=== PATIENT | female | born 1970 | race Caucasian/White ===

== ENCOUNTER 2018-06-28 04:59 | Emergency (ER) | payer SELFPAY ==
[2018-06-28 05:58] LABS: Absolute Lymphocytes (CBC) 0.9 K/uL (0.7-4.9); Absolute Monocytes 0.9 K/uL (0.1-1.3); Absolute Neutrophil 7.5 K/uL (1.8-8.0); Basophils % 0.5 % (0-1.3); Eosinophils % 1.6 % (0-4.4); Hematocrit 43.3 % (36.0-45.0); Lymphocytes % 9.2 % (15.3-44.8); MPV 8.9 fL (7.6-11.3); RBC Red Blood Cell Count 4.39 M/uL (3.86-4.86)
[2018-06-28 06:04] LABS: Protime INR 1.02
[2018-06-28] MEDS ORDERED: ONDANSETRON 4 MG/2 ML VIAL ONE ×2 (06:04→07:10)
[2018-06-28] MEDS ORDERED: NA CHLORIDE 0.9% 1,000 ML ONE ×2 (06:04→07:36)
[2018-06-28 06:18] LABS: ALT/SGPT 19 U/L (12-78); AST/SGOT 13 U/L (15-37); Albumin 3.6 g/dL (3.4-5.0); Alkaline Phosphatase 135 U/L (45-117); BUN Blood Urea Nitrogen 12 mg/dL (7-18); Bicarbonate 22 mmol/L (21-32); Bilirubin Direct 0.1 mg/dL (0-0.2); Bilirubin Total 0.3 mg/dL (0.2-1.0); Glucose Level 122 mg/dL (74-106); Lipase 86 U/L (73-393); Magnesium 2.4 mg/dL (1.8-2.4); NT PRO-BNP 142 pg/mL (<125); Protein, Total 7.3 g/dL (6.4-8.2); Sodium Level 143 mmol/L (136-145); Troponin (Emerg Dept Use Only) < 0.02 ng/mL (0.0-0.045)
--- NOTE | 2018-06-28 08:18 | ER ---
Nurse's Notes [facility] Name: Jayleen Starks Age: 47 yrs Sex: Female : 1970 Arrival Date: 06/28/2018 Time: 05:00 Bed 6 Private MD: Diagnosis: Vomiting;Abdominal tenderness;Cough Presentation: 06/28 05:15 Presenting complaint: states: that on pt stated to have a cough, and fc congestion. Went to [place] on Friday and told she had a virus. Went home and then started to vomit. Now unable to hold down her seizures medications. Transition of care: patient was not received from another setting of care. Onset of symptoms was June 25, 2018. Risk Assessment: Do you want to hurt yourself or someone else? Patient reports no desire to harm self or others. Initial Sepsis Screen: Does the patient meet any 2 criteria? HR > 90 bpm. Yes Does the patient have a suspected source of infection? No. Patient's initial sepsis screen is negative. Care prior to arrival: None. 05:15 Method Of Arrival: Ambulatory fc 05:15 Acuity: ANSHUL 3 fc Triage Assessment: 06:00 General: Appears in no apparent distress. uncomfortable, Behavior is calm, cooperative, cc3 appropriate for age. Pain: Complains of pain in left lower quadrant and right lower quadrant and left upper quadrant and right upper quadrant. GI: Reports lower abdominal pain, upper abdominal pain, nausea, vomiting. 06:00 EENT: No signs and/or symptoms were reported regarding the EENT system. Neuro: Level of cc3 Consciousness is awake, alert, obeys commands, Oriented to person, place, time, situation, Appropriate for age. Cardiovascular: Patient's skin is warm and dry. Respiratory: Airway is patent Respiratory effort is even, unlabored, Respiratory pattern is regular, symmetrical. : No signs and/or symptoms were reported regarding the genitourinary system. Derm: No signs and/or symptoms reported regarding the dermatologic system. Musculoskeletal: Circulation, motion, and sensation intact. Range of motion: intact in all extremities. 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 LMP N/A - Hysterectomy fc Historical: - Allergies: 05:57 No Known Allergies; fc - Home Meds: 05:57 nitrofurantoin macrocrystal 50 mg Oral cap 1 cap once daily [Active]; omeprazole 20 mg fc Oral cpDR 1 cap once daily [Active]; ondansetron HCl 4 mg Oral tab tid prn [Active]; Onfi 20 mg oral tab 1 tab 2 times per day [Active]; pantoprazole 40 mg oral TbEC 1 tab once daily [Active]; promethazine 25 mg Oral tab 1 tab qid prn [Active]; ropinirole 1 mg oral tab 1 tab nightly [Active]; spironolactone 25 mg Oral tab 1 tab 3 times per day [Active]; zonisamide 100 mg oral cap 2 caps three times a day [Active]; Celebrex 200 mg Oral cap 1 cap once daily [Active]; Deplin (algal oil) 15-90.314 mg oral cap daily [Active]; estradiol 1 mg Oral tab 1 tab once daily [Active]; Lamictal 300 mg Oral 1 tab three times a day [Active]; Latuda 60 mg oral tab 1 tab once daily [Active]; Linzess 290 mcg oral cap 1 cap once daily [Active]; lithium carbonate 300 mg Oral tab 1 tab daily [Active]; Ritalin 10 mg Oral tab 1 tab 2 times per day [Active]; - PMHx: 05:57 Seizures; Bipolar disorder; GERD; restless leg syndrome; ADD/ADHD; fc - PSHx: 05:57 Cholecystectomy; Hysterectomy; vagus nerve stimulator; bladder stimulator; fc - Immunization history:: Last tetanus immunization: unknown, Flu vaccine is not up to date. - Social history:: Smoking status: Patient/guardian denies using tobacco, Patient/guardian denies using alcohol, street drugs. - Ebola Screening: : Patient negative for fever greater than or equal to 101.5 degrees Fahrenheit, and additional compatible Ebola Virus Disease symptoms Patient denies exposure to infectious person Patient denies travel to an Ebola-affected area in the 21 days before illness onset. Screenin:00 Abuse screen: Denies threats or abuse. Denies injuries from another. Nutritional cc3 screening: No deficits noted. Tuberculosis screening: No symptoms or risk factors identified. Fall Risk Ambulatory Aid- None/Bed Rest/Nurse Assist (0 pts). Gait- Normal/Bed Rest/Wheelchair (0 pts) Mental Status- Oriented to own ability (0 pts). Assessment: 06:00 General: see triage assessment. cc3 06:40 Reassessment: Patient appears in no apparent distress at this time. Patient and/or cc3 family updated on plan of care and expected duration. Pain level reassessed. Patient is alert, oriented x 3, equal unlabored respirations, skin warm/dry/pink. 07:38 General: Appears in no apparent distress. uncomfortable, Behavior is calm, cooperative, hj appropriate for age. Pain: Complains of pain in left lower quadrant and right lower quadrant and left upper quadrant and right upper quadrant. Neuro: Level of Consciousness is awake, alert, obeys commands, Oriented to person, place, time, situation, Appropriate for age. Cardiovascular: Capillary refill < 3 seconds Patient's skin is warm and dry. Respiratory: Airway is patent Respiratory effort is even, unlabored, Respiratory pattern is regular, symmetrical. GI: Reports vomiting. 07:38 GI: Abdomen is non-distended, Bowel sounds present X 4 quads. Abd is soft Abd is non hj tender. : No signs and/or symptoms were reported regarding the genitourinary system. EENT: No signs and/or symptoms were reported regarding the EENT system. Derm: No signs and/or symptoms reported regarding the dermatologic system. Musculoskeletal: No signs and/or symptoms reported regarding the musculoskeletal system. 08:09 Reassessment: Patient and/or family updated on plan of care and expected duration. Pain hj level reassessed. Patient is alert, oriented x 3, equal unlabored respirations, skin warm/dry/pink. fluids running;. 08:45 Reassessment: Patient and/or family updated on plan of care and expected duration. Pain hj level reassessed. Patient is alert, oriented x 3, equal unlabored respirations, skin warm/dry/pink. D/C instructions given; awaiting fluids to be done;. Vital Signs: 05:15 BP 117 / 89; Pulse 96; Resp 18; Pulse Ox 97% on R/A; Weight 77.11 kg (R); Height 5 ft. fc 3 in. (160.02 cm) (R); Pain 9/10; 05:51 Temp 99.2; ms 06:15 BP 111 / 83; Pulse 79; Resp 20 S; Pulse Ox 100% on R/A; cc3 07:00 BP 111 / 79; Pulse 75; Resp 18; Temp 97.9(TE); Pulse Ox 100% ; hj 08:09 BP 101 / 78; Pulse 72; Resp 18; Pulse Ox 100% on R/A; hj 05:15 Body Mass Index 30.11 (77.11 kg, 160.02 cm) ED Course: 05:00 Patient arrived in ED. ag3 05:15 Arm band placed on Patient placed in an exam room, on a stretcher. fc 05:42 X-ray completed. Portable x-ray completed in exam room. Patient tolerated procedure sg4 well. 05:49 Triage completed. fc 05:50 Arelis Grace is Primary Nurse. cc3 05:59 XRAY Chest (1 view) In Process Unspecified. EDMS 06:00 Jake Kelley MD is Attending Physician. [facility] 06:59 Christian Tapia, PEGGY is Primary Nurse. hj 07:00 Patient has correct armband on for positive identification. Placed in gown. Bed in low hj position. Call light in reach. Side rails up X 1. 07:00 Inserted saline lock: 20 gauge in right antecubital area, using aseptic technique. hj 07:32 Jake Munoz PA is PHCP. cp 08:59 No provider procedures requiring assistance completed. IV discontinued, intact, hj bleeding controlled, No redness/swelling at site. Pressure dressing applied. Administered Medications: 05:55 Drug: NS 0.9% 1000 ml Route: IV; Rate: 1 bolus; Site: right antecubital; cc3 08:47 Follow up: IV Status: Completed infusion hj 05:55 Drug: Zofran 4 mg Route: IVP; Site: right antecubital; cc3 06:20 Follow up: Response: No adverse reaction cc3 06:58 Drug: Zofran 4 mg Route: IVP; Site: right antecubital; hj 07:04 Follow up: Response: No adverse reaction hj 07:25 Drug: NS 0.9% 1000 ml Route: IV; Rate: 1 bolus; Site: right antecubital; hj 08:46 Follow up: IV Status: Completed infusion hj Outcome: 08:17 Discharge ordered by . cp 08:59 Discharged to home ambulatory, with family. hj 08:59 Condition: stable 08:59 Discharge instructions given to patient, family, Instructed on discharge instructions, follow up and referral plans. medication usage, Demonstrated understanding of instructions, follow-up care, medications, Prescriptions given X 4. 09:00 Patient left the ED. ronaldo Signatures: Dispatcher [employer] EDMS Jake Kelley, Vandana Cooper MD, cha, RN RN Mireya Prabhakar ms, Henry, RN RN hj Page, Corey, FLACO Grace, Arelis cc3 Baez, Brenda ag3 Jarrett, Alley sg4
--- NOTE | 2018-06-28 08:18 | EDPHYS ---
Physician Documentation [facility] Name: Jayleen Starks Age: 47 yrs Sex: Female : 1970 Arrival Date: 06/28/2018 Time: 05:00 Bed 6 Private MD: ED Physician Jake Kelley HPI: 06/28 06:17 This 47 yrs old Female presents to ER via Ambulatory with complaints of nixon Vomiting. 06:17 The patient presents to the emergency department with nausea, vomiting, that is nixon continuous. Onset: The symptoms/episode began/occurred last night. Possible causes: unknown. The symptoms are aggravated by nothing. The symptoms are alleviated by nothing. Associated signs and symptoms: The patient has no apparent associated signs or symptoms. Severity of symptoms: At their worst the symptoms were mild in the emergency department the symptoms are unchanged. The patient has experienced similar episodes in the past, several times. 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 LMP N/A - Hysterectomy fc Historical: - Allergies: 05:57 No Known Allergies; fc - Home Meds: 05:57 nitrofurantoin macrocrystal 50 mg Oral cap 1 cap once daily [Active]; omeprazole 20 mg fc Oral cpDR 1 cap once daily [Active]; ondansetron HCl 4 mg Oral tab tid prn [Active]; Onfi 20 mg oral tab 1 tab 2 times per day [Active]; pantoprazole 40 mg oral TbEC 1 tab once daily [Active]; promethazine 25 mg Oral tab 1 tab qid prn [Active]; ropinirole 1 mg oral tab 1 tab nightly [Active]; spironolactone 25 mg Oral tab 1 tab 3 times per day [Active]; zonisamide 100 mg oral cap 2 caps three times a day [Active]; Celebrex 200 mg Oral cap 1 cap once daily [Active]; Deplin (algal oil) 15-90.314 mg oral cap daily [Active]; estradiol 1 mg Oral tab 1 tab once daily [Active]; Lamictal 300 mg Oral 1 tab three times a day [Active]; Latuda 60 mg oral tab 1 tab once daily [Active]; Linzess 290 mcg oral cap 1 cap once daily [Active]; lithium carbonate 300 mg Oral tab 1 tab daily [Active]; Ritalin 10 mg Oral tab 1 tab 2 times per day [Active]; - PMHx: 05:57 Seizures; Bipolar disorder; GERD; restless leg syndrome; ADD/ADHD; fc - PSHx: 05:57 Cholecystectomy; Hysterectomy; vagus nerve stimulator; bladder stimulator; fc - Immunization history:: Last tetanus immunization: unknown, Flu vaccine is not up to date. - Social history:: Smoking status: Patient/guardian denies using tobacco, Patient/guardian denies using alcohol, street drugs. - Ebola Screening: : Patient negative for fever greater than or equal to 101.5 degrees Fahrenheit, and additional compatible Ebola Virus Disease symptoms Patient denies exposure to infectious person Patient denies travel to an Ebola-affected area in the 21 days before illness onset. ROS: 06:18 Constitutional: Negative for fever, chills, and weight loss, Eyes: Negative for injury, nixon pain, redness, and discharge, ENT: Negative for injury, pain, and discharge, Neck: Negative for injury, pain, and swelling, Cardiovascular: Negative for chest pain, palpitations, and edema, Respiratory: Negative for shortness of breath, cough, wheezing, and pleuritic chest pain, Back: Negative for injury and pain, : Negative for injury, bleeding, discharge, and swelling, MS/Extremity: Negative for injury and deformity, Skin: Negative for injury, rash, and discoloration, Neuro: Negative for headache, weakness, numbness, tingling, and seizure, Psych: Negative for depression, anxiety, suicide ideation, homicidal ideation, and hallucinations, Allergy/Immunology: Negative for hives, rash, and allergies, Endocrine: Negative for neck swelling, polydipsia, polyuria, polyphagia, and marked weight changes, Hematologic/Lymphatic: Negative for swollen nodes, abnormal bleeding, and unusual bruising. 06:18 Abdomen/GI: Positive for abdominal pain, nausea and vomiting, of the right upper quadrant, left upper quadrant, right lower quadrant and left lower quadrant. Exam: 06:18 Constitutional: This is a well developed, well nourished patient who is awake, alert, nixon and in no acute distress. Head/Face: Normocephalic, atraumatic. Eyes: Pupils equal round and reactive to light, extra-ocular motions intact. Lids and lashes normal. Conjunctiva and sclera are non-icteric and not injected. Cornea within normal limits. Periorbital areas with no swelling, redness, or edema. ENT: Nares patent. No nasal discharge, no septal abnormalities noted. Tympanic membranes are normal and external auditory canals are clear. Oropharynx with no redness, swelling, or masses, exudates, or evidence of obstruction, uvula midline. Mucous membranes moist. Neck: Trachea midline, no thyromegaly or masses palpated, and no cervical lymphadenopathy. Supple, full range of motion without nuchal rigidity, or vertebral point tenderness. No Meningismus. Chest/axilla: Normal chest wall appearance and motion. Nontender with no deformity. No lesions are appreciated. Cardiovascular: Regular rate and rhythm with a normal S1 and S2. No gallops, murmurs, or rubs. Normal PMI, no JVD. No pulse deficits. Respiratory: Lungs have equal breath sounds bilaterally, clear to auscultation and percussion. No rales, rhonchi or wheezes noted. No increased work of breathing, no retractions or nasal flaring. Back: No spinal tenderness. No costovertebral tenderness. Full range of motion. Female : Normal external genitalia. Skin: Warm, dry with normal turgor. Normal color with no rashes, no lesions, and no evidence of cellulitis. MS/ Extremity: Pulses equal, no cyanosis. Neurovascular intact. Full, normal range of motion. Neuro: Awake and alert, GCS 15, oriented to person, place, time, and situation. Cranial nerves II-XII grossly intact. Motor strength 5/5 in all extremities. Sensory grossly intact. Cerebellar exam normal. Normal gait. Psych: Awake, alert, with orientation to person, place and time. Behavior, mood, and affect are within normal limits. 06:18 Abdomen/GI: Inspection: distension, Bowel sounds: normal, Palpation: mild abdominal tenderness, in all quadrants, Liver: no appreciated palpable abnormalities, Hernia: not appreciated. Vital Signs: 05:15 BP 117 / 89; Pulse 96; Resp 18; Pulse Ox 97% on R/A; Weight 77.11 kg (R); Height 5 ft. fc 3 in. (160.02 cm) (R); Pain 9/10; 05:51 Temp 99.2; ms 06:15 BP 111 / 83; Pulse 79; Resp 20 S; Pulse Ox 100% on R/A; cc3 07:00 BP 111 / 79; Pulse 75; Resp 18; Temp 97.9(TE); Pulse Ox 100% ; hj 08:09 BP 101 / 78; Pulse 72; Resp 18; Pulse Ox 100% on R/A; hj 05:15 Body Mass Index 30.11 (77.11 kg, 160.02 cm) fc MDM: 06:00 Patient medically screened. [facility] 06:18 Data reviewed: vital signs, nurses notes, lab test result(s), EKG, radiologic studies, nixon plain films. 06/28 05:36 Order name: Basic Metabolic Panel ms 06/28 05:36 Order name: CBC with Diff; Complete Time: 06:26 ms 06/28 07:39 Interpretation: Normal except: JIAN% 79.7; LYM% 9.2. cp 06/28 05:36 Order name: LFT's ms 06/28 05:36 Order name: Magnesium; Complete Time: 06:26 ms 06/28 05:36 Order name: NT PRO-BNP; Complete Time: 06:26 ms 06/28 05:36 Order name: PT-INR; Complete Time: 06:26 ms 06/28 05:36 Order name: Troponin (emerg Dept Use Only); Complete Time: 06:26 ms 06/28 05:36 Order name: XRAY Chest (1 view) ms 06/28 05:36 Order name: Lipase; Complete Time: 06:26 ms 06/28 05:36 Order name: Basic Metabolic Panel; Complete Time: 06:26 EDMS 06/28 07:39 Interpretation: Normal except: CL 116; GLUC 122; CRE 1.45; GFR 39. cp 06/28 05:36 Order name: Liver (Hepatic) Function; Complete Time: 06:26 EDMS 06/28 06:26 Order name: [place]; Complete Time: 07:39 [facility] 06/28 07:39 Interpretation: Reviewed. cp 06/28 05:36 Order name: EKG; Complete Time: 05:37 ms 06/28 05:36 Order name: Cardiac monitoring; Complete Time: 05:50 ms 06/28 05:36 Order name: EKG - Nurse/Tech; Complete Time: 06:02 ms 06/28 05:36 Order name: IV Saline Lock; Complete Time: 05:50 ms 06/28 05:36 Order name: Labs collected and sent; Complete Time: 05:50 ms 06/28 05:36 Order name: O2 Per Protocol; Complete Time: 05:50 ms 06/28 05:36 Order name: O2 Sat Monitoring; Complete Time: 05:50 ms 06/28 07:40 Order name: PO challenge; Complete Time: 07:41 cp Administered Medications: 05:55 Drug: NS 0.9% 1000 ml Route: IV; Rate: 1 bolus; Site: right antecubital; cc3 08:47 Follow up: IV Status: Completed infusion hj 05:55 Drug: Zofran 4 mg Route: IVP; Site: right antecubital; cc3 06:20 Follow up: Response: No adverse reaction cc3 06:58 Drug: Zofran 4 mg Route: IVP; Site: right antecubital; hj 07:04 Follow up: Response: No adverse reaction hj 07:25 Drug: NS 0.9% 1000 ml Route: IV; Rate: 1 bolus; Site: right antecubital; hj 08:46 Follow up: IV Status: Completed infusion hj Disposition: 06/28/18 08:17 Discharged to Home. Impression: Vomiting, Abdominal tenderness, Cough. - Condition is Stable. - Discharge Instructions: Abdominal Pain, Adult, Nausea and Vomiting, Adult, Nausea and Vomiting, Adult, [id number], Abdominal Pain, Adult, [id number], Cough, Adult, [id number], Cough, Adult. - Prescriptions for Pepcid 20 mg Oral Tablet - take 1 tablet by ORAL route every 12 hours for 10 days; 20 tablet. Zofran 4 mg Oral Tablet - take 1 tablet by ORAL route every 12 hours As needed; 20 tablet. promethazine 25 mg Oral Tablet - take 1 tablet by ORAL route every 6 hours As needed; 20 tablet. Cheratussin AC 10- 100 mg/5 mL Oral liquid - take 10 milliliter by ORAL route every 4 hours; 150 milliliter. - Medication Reconciliation Form, Thank You Letter, Antibiotic Education, Prescription Opioid Use form. - Follow up: Private Physician; When: 2 - 3 days; Reason: Recheck today's complaints, Continuance of care, Re-evaluation by your physician. - Problem is new. - Symptoms have improved. Signatures: Dispatcher [employer] EDJake Lewis MD MD cha Chretien, Felicia RN Mireya Corona ms, Henry, RN RN Jake Roe PA PA cp Cordel, Charlene cc3 Corrections: (The following items were deleted from the chart) 09:00 08:17 06/28/2018 08:17 Discharged to Home. Impression: Vomiting; Abdominal tenderness; hj Cough. Condition is Stable. Discharge Instructions: Abdominal Pain, Adult, Nausea and Vomiting, Adult, Nausea and Vomiting, Adult, [id number], Abdominal Pain, Adult, [id number], Cough, Adult, Grai-rm-[id number], Cough, Adult. Prescriptions for Pepcid 20 mg Oral Tablet - take 1 tablet by ORAL route every 12 hours for 10 days; 20 tablet, Zofran 4 mg Oral Tablet - take 1 tablet by ORAL route every 12 hours As needed; 20 tablet, promethazine 25 mg Oral Tablet - take 1 tablet by ORAL route every 6 hours As needed; 20 tablet, Cheratussin AC 10-100 mg/5 mL Oral liquid - take 10 milliliter by ORAL route every 4 hours; 150 milliliter. and Forms are Medication Reconciliation Form, Thank You Letter, Antibiotic Education, Prescription Opioid Use. Follow up: Private Physician; When: 2 - 3 days; Reason: Recheck today's complaints, Continuance of care, Re-evaluation by your physician. Problem is new. Symptoms have improved. cp
--- NOTE | 2018-06-28 12:32 | RAD REPORT ---
EXAM DESCRIPTION: RAD - Chest Single View - 06/28/2018 5:59 am CLINICAL HISTORY: PAIN Chest pain. COMPARISON: No comparisons FINDINGS: Portable technique limits examination quality. The lungs are grossly clear. The heart is normal in size. Mildly tortuous thoracic aorta.Left-sided s timulator device noted obscuring a portion of the left mid lung parenchyma. IMPRESSION: No acute intrathoracic process suspected.
--- NOTE | 2018-06-28 17:27 | EKG ---
Test Date: 2018-06-28 Test Time: 05:56:54 Test Cell Technician: JUDY MEASUREMENT RESULTS: Intervals: Rate: 82 MA: 200 QRSD: 88 QT: 392 QTc: 457 [place]: P: 46 MA: 200 QRS: -21 T: 57 INTERPRETIVE STATEMENTS: Normal sinus rhythm Cannot rule out Anterior infarct, age undetermined Abnormal ECG No previous ECG available for comparison Electronically Signed On 06-28-18 17:17:56 [employer]AFF [employer] OFFICER by Hood Eduardo
== END 2018-06-28 09:00 | disposition home or self-care (01) ==
LOC: ER 04:59
DX: R11.10 Vomiting, unspecified (principal); R10.9 Unspecified abdominal pain; R05 Cough; G40.909 Epilepsy, unspecified, not intractable, without status epilepticus; F31.9 Bipolar disorder, unspecified; K21.9 Gastro-esophageal reflux disease without esophagitis; G25.81 Restless legs syndrome; F90.9 Attention-deficit hyperactivity disorder, unspecified type; Z79.890 Hormone replacement therapy; Z79.899 Other long term (current) drug therapy
CPT/HCPCS: 36415; 71045; 80048; 80076; 80178; 83690; 83735; 83880; 84484; 85025; 85610; 93005; 96361; 96374; 99284; J2405; J7030